=== PATIENT | female | born 1930 | race Caucasian/White ===

== ENCOUNTER 2016-05-03 11:30 | Day surgery (SDC) | payer MEDICARE, BC ==
[~2016-05-03 11:30] MED LIST: PROPOFOL 200 MG/20 ML AMP IV ONE
[2016-05-03] MEDS ORDERED: SODIUM CHLORID 0.9% 500 ML IV SCH (12:30)
[2016-05-03] MEDS ORDERED: INSULIN HUMAN REGULAR 1,000 UNITS/10 ML VIAL SQ PRN (12:30)
[2016-05-03] MEDS ORDERED: METOPROLOL TARTRATE 25 MG TAB PO PRN (12:30)
[2016-05-03] MEDS ORDERED: LACTATED RINGER'S 1000 ML IV SCH (12:30)
[2016-05-03] MEDS ORDERED: PLAV75TA29 PO (13:33)
[2016-05-03] MEDS ORDERED: [UNRECOGNIZED DRUG - CODE] PO (13:33)
[2016-05-03] MEDS ORDERED: COQ-100C2 PO (13:33)
[2016-05-03] MEDS ORDERED: ALBUAER3 INH (13:33)
[2016-05-03] MEDS ORDERED: ALPH1CAP PO (13:33)
[2016-05-03] MEDS ORDERED: PRAV20TA2 PO (13:33)
[2016-05-03] MEDS ORDERED: FENO145T2 PO (13:33)
[2016-05-03] MEDS ORDERED: K-TA10TA PO (13:33)
[2016-05-03] MEDS ORDERED: GLUC1CAP16 PO (13:33)
[2016-05-03] MEDS ORDERED: ASPI1TAB69 PO (13:33)
[2016-05-03] MEDS ORDERED: FISH1000 PO (13:33)
[2016-05-03] MEDS ORDERED: HYDR25TA5 PO (13:33)
[2016-05-03] MEDS ORDERED: VITA20003 (13:33)
[2016-05-03] MEDS ORDERED: VITA400C5 PO (13:33)
[2016-05-03] MEDS ORDERED: BENA40TA PO (13:33)
[2016-05-03] MEDS ORDERED: PROBCAP28 PO (13:33)
[2016-05-03] MEDS ORDERED: METO-424 PO (13:33)
--- NOTE | 2016-05-04 09:17 | CF ---
cc: TAMARA ROBLES M.D., OLIMPIO F. M.D. SPRINGER, DEANNA K. M.D. DATE: 05/03/2016 PROCEDURE: Transesophageal echocardiogram. INDICATION: TIA. CONSENT: A full, informed consent was obtained prior to the procedure. The risks of , bleeding, myocardial infarction, perforation, aspiration, foreseen and unforeseen complications were reviewed. The patient fully appeared to understand the risks and was willing to proceed. PROCEDURE: The patient was anesthetized as per the Anesthesia Department. A full transesophageal echocardiogram was performed, bubble study was x 2 (agitated contrast solution was injected). FINDINGS: The interatrial septum was intact. The interventricular septum was intact. The mitral and tricuspid valves moved normally. Doppler study showed mitral regurgitation, trace aortic regurgitation. The aortic valve was mildly thickened. The aorta was visualized to 40 cm. There was very mild plaquing. CONCLUSION: Negative transesophageal echo. Negative bubble studies x 2. No obvious cause found for TIA/stroke. Tamara Robles MD, CP,[facility]IST[facility]IR /1:52 PM /9:07 AM
--- NOTE | 2016-05-04 18:51 | EKG ---
Date Performed: 05/03/2016 Time Performed: 11:52:08 PTAGE: 85 years EKG: Sinus rhythm Consider left atrial abnormality Leftward axis rSr'(V1) - probable normal variant Possible anterior infarct - age undetermined Lateral T wave changes may be due to myocardial ischemia Abnormal ECG PREVIOUS TRACING : 03/14/2005 05.28 DOCTOR: Keith Ward Interpretating Date/Time 05/04/2016 18:45:18
== END 2016-05-03 15:00 | disposition home or self-care (01) ==
LOC: HDOC 11:30 → HDIC 11:30 → HDOC 15:00
PROVIDERS: ATTEND Internal Medicine Cardiovascular Disease
DX: I63.9 Cerebral infarction, unspecified (principal); R53.83 Other fatigue; J44.9 Chronic obstructive pulmonary disease, unspecified; I34.0 Nonrheumatic mitral (valve) insufficiency; R00.2 Palpitations; R07.9 Chest pain, unspecified; I10 Essential (primary) hypertension; E78.5 Hyperlipidemia, unspecified; I26.99 Other pulmonary embolism without acute cor pulmonale
CPT/HCPCS: 93005; 93312; 93320; 93325

== ENCOUNTER 2016-06-01 10:28 | Day surgery (SDC) | payer MEDICARE, BC ==
[~2016-06-01 10:28] MED LIST changes: +ALBUAER3 INH; +ALPH1CAP PO; +ASPI1TAB69 PO; +BENA40TA PO; +COQ-100C2 PO; +FENO145T2 PO; +FISH1000 PO; +GLUC1CAP16 PO; +HYDR25TA5 PO; +K-TA10TA PO; +METO-424 PO; +PLAV75TA29 PO; +PRAV20TA2 PO; +PROBCAP28 PO; -PROPOFOL 200 MG/20 ML AMP IV ONE; +VITA20003; +VITA400C5 PO; +[UNRECOGNIZED DRUG - CODE] PO
[2016-06-01] MEDS ORDERED: MUPIROCIN 2% OINT 1 APPLIC/GM SYR NASAL SCH (11:00)
[2016-06-01] MEDS ORDERED: NS 1000 ML IV SCH (11:00)
[2016-06-01] MEDS ORDERED: VANCOMYCIN 1000 MG/NS 250 ML IV SCH ×2 (11:00)
[2016-06-01] MEDS ORDERED: POVIDONE IODINE 5% (ANTISEPSIS KIT) 4 APPLICATIONS EACH NARE SCH (11:00)
[2016-06-01] MEDS ORDERED: CHLORHEXIDINE GLUCONATE 2 % 1 PACK (2 CLOTHS) TOPICAL SCH (11:00)
[2016-06-01] MEDS ORDERED: NO Heparin, Lovenox, Coumadin at least 12 hours prior to procedure. PRN (11:00)
[2016-06-01] MEDS ORDERED: TRIA37.53 PO (11:08)
[2016-06-01] MEDS ORDERED: MIDAZOLAM HCL 2 MG/2 ML VIAL ONE (12:00)
--- NOTE | 2016-06-01 18:33 | PD.CARD ---
Cardiology Procedure Note Procedure Name: Loop recorder Procedure Date: Jun 01, 2016 Procedure Note: Successful placement of loop recorder please see dictation for full report. Tamara Robles MD Jun 01, 2016 18:33
--- NOTE | 2016-06-03 13:39 | MP ---
cc: TAMARA ROBLES M.D. DATE OF SURGERY: 06/01/2016 PROCEDURE The loop recorder. INDICATIONS FOR PROCEDURE: Indication for loop recorder is a stroke. BRIEF HISTORY This very pleasant lady has had a history of prior stroke. He that was negative for cause of stroke. It was decided therefore proceed with a loop recorder. Risks of the loop recorder, including; bleeding, infection, foreseen and unforeseen were reviewed, the patient fully appeared to understands the risks and is willing to proceed. PROCEDURE: The patient was draped and prepped in the usual manner. The patient was given sedation with a loop recorder the patient then had local infiltration with lidocaine and following this, incision was performed using a [employer] scalpel set and a loop recorder was injected under the skin. This was closed with Steri-Strip. The patients blood loss was 1/2 a cubic cm. There were no complications. The patient tolerated procedure well and returned to room in stable condition. PLAN Will plan to discharge the patient later today to be discharged home. Diet was healthy heart, low-fat, low-cholesterol. CONCLUSION Successful placement of loop recorder [employer]. Tamara Robles MD, FRCP,[facility] WITH [facility]/maría /6:31 PM /1:30 PM
== END 2016-06-01 16:13 | disposition home or self-care (01) ==
LOC: HDOC 10:28 → HDIC 10:29 → HDOC 16:13
PROVIDERS: ATTEND Internal Medicine Cardiovascular Disease
DX: I34.0 Nonrheumatic mitral (valve) insufficiency (principal); G45.9 Transient cerebral ischemic attack, unspecified; I10 Essential (primary) hypertension; E78.5 Hyperlipidemia, unspecified
CPT/HCPCS: 33282; C1764; J2250; J3010; J7030